=== PATIENT | female | born 1960 | race American Indian/Alaskan Native ===

== ENCOUNTER → 2017-05-22 | Outpatient (CLI) | payer BC ==
[~2017-05-22] MED LIST: ACYC400T4 PO; ALLO300T PO; ALPR1TAB2 PO; CALC1TAB76 PO; CIPR500T87 PO; LORA-446 PO; MULT-658 PO; OMEP20CA9 PO; ONDA8TAB12 PO; POTA20TA6 PO; SEPTRA PO/NG; VITA1TAB56 PO
== END | disposition home or self-care (01) ==
LOC: CFH 16:02
PROVIDERS: ATTEND Obstetrics & Gynecology Gynecology
DX: Z12.31 Encounter for screening mammogram for malignant neoplasm of breast (principal)
CPT/HCPCS: G0202

== ENCOUNTER → 2021-01-24 | Outpatient (CLI) | payer BC | END | disposition home or self-care (01) | LOC: CFH 07:00 | PROVIDERS: ATTEND Obstetrics & Gynecology Gynecology | DX: Z12.31 Encounter for screening mammogram for malignant neoplasm of breast (principal) | CPT/HCPCS: 77063; 77067 ==